=== PATIENT | male | born 1990 | race Caucasian/White ===

== ENCOUNTER 2017-09-10 16:42 | Emergency (ER) | payer SELFPAY ==
[2017-09-10 16:43] VITALS: BP 109/60; PULSE 110; RESP 16; TEMP 37.7; O2SAT 99; BMI 22.5
--- NOTE | 2017-09-10 17:09 | ED.DEP ---
ED Disposition - Plan for ED Patient: Chief Complaint: Abscess Instructions: ED Infec Skin Cellulitis Prescriptions: Cephalexin [Keflex] 500 mg PO Q6 #40 capsule Smz/Tmp Ds [Bactrim Ds] 1 tablet PO BID #14 tablet Referrals: Care Physician,No Primary [Primary Care Provider] - Danya Quintanilla DO [STAFF PHYSICIAN] -
--- NOTE | 2017-09-10 17:15 | ED.VISSUMM ---
- ER Visit Summary Date of Service: 09/10/17 Chief Complaint: Left knee redness History of Present Illness: The patient is a 26 M presenting with redness to the left knee. He states this started yesterday. Patient does not recall any injury or bite to the area. He has had no fever. He states he used a warm bottle home remedy and had minimal drainage. He states he did not puncture the area with a needle. Denies other complaints. Physical Examination: Vitals are stable. Temperature 99.9. Alert no acute distress. HEENT exam is unremarkable. Neck is supple. Lungs are clear and equal bilaterally. Heart is regular rate and rhythm. Extremities suprapatellar erythema and small area of induration without fluctuance. Active full range of motion of knee without tenderness. NVID. Skin is warm and dry. No focal neurologic deficit. Remainder of exam is unremarkable. Emergency Department Course and Treatment: Patient is given Bactrim, Keflex. Advised signs and symptoms for which to return to the emergency department. Advised to follow-up with primary care physician. Disposition: Discharge home Impression: Left knee cellulitis This note was generated with [employer] dictation software. It may contain incorrect words, spelling, and punctuation that were not noted in review of the chart prior to signing ED Disposition - Plan for ED Patient: Disposition: Home or Assisted Living Chief Complaint: Abscess Instructions: ED Infec Skin Cellulitis Prescriptions: Cephalexin [Keflex] 500 mg PO Q6 #40 capsule Smz/Tmp Ds [Bactrim Ds] 1 tablet PO BID #14 tablet Referrals: Danya Quintanilla DO [STAFF PHYSICIAN] - Care Physician,No Primary [Primary Care Provider] -
[2017-09-10] MEDS: Smz/Tmp Ds Tablet 1 TABLET PO (17:25)
[2017-09-10] MEDS: Cephalexin 250 MG Capsule 500 MG PO (17:25)
== END 2017-09-10 17:33 | disposition home or self-care (01) ==
PROVIDERS: Emergency Provider Emergency Medicine
DX: L03.116 Cellulitis of left lower limb (principal); Z72.0 Tobacco use
CPT/HCPCS: 99283

== ENCOUNTER 2018-07-08 23:20 | Emergency (ER) | payer SELFPAY ==
[2018-07-08 23:21] VITALS: BP 140/77; PULSE 95; RESP 18; TEMP 36.4; O2SAT 99; BMI 21.9
--- NOTE | 2018-07-08 23:42 | ED.VISSUMM ---
- ER Visit Summary Date of Service: 07/08/18 Chief Complaint: Back muscle spasm History of Present Illness: The patient is a 27 M smoking alcohol medical or significant past surgical history. 4 PM he was washing dishes and mopping any for muscle spasm in his right mid back to the right side of his spine and around his scapula but lower. He denies any fall injury or trauma. States he had pain like this before. Denies any chest pain or any shortness of breath. No abdominal pain. States it comes in spasms. At times is worse. Is worse with movement or bending over. He denies any other symptoms. No weakness or numbness. Physical Examination: Young male no acute distress. Vital signs are stable and afebrile. Initial blood pressure 140/77. Also is 9 9% on room air no signs of hypoxia. He is tall about 648. HEENT exam unremarkable atraumatic. Neck nontender. Lungs there to auscultation bilaterally. Heart regular rhythm rate about 90 no murmur. Chest wall nontender. Abdomen soft nontender. Patient is moving all 4 extremities. Neurovascular intact. He has 5 out of [place] strength bilaterally. Equal symmetrical radial pulses bilaterally. Dorsi plantar flexion intact. Calves are nontender without edema. Back exam his spine is nontender. To the right of his spine and inferior to the scapula there is soft tissue tenderness consistent with muscle spasm. There is no redness or warmth. No signs of trauma. No bony deformities. No crepitance. Test Results: Patient did not want any testing done. He was offered but deferred a chest x-ray. Emergency Department Course and Treatment: Historically clinically this is consistent with a muscle spasm. He has reproducible pain. It is worse with movement twisting or bending. Patient was offered but deferred a chest x-ray. Treated with ibuprofen p.o. and Valium p.o. Treatment Plan: Valium 5 to 10 mg as needed for muscle spasms 10 no refill. Motrin as needed. Hot shower warm bath. Massage. Return if feeling worse or other symptoms develop. Disposition: Discharge Impression: Back muscle spasm This note was generated with [employer] dictation software. It may contain incorrect words, spelling, and punctuation that were not noted in review of the chart prior to signing ED Disposition - Plan for ED Patient: Referrals: Care Physician,No Primary [Primary Care Provider] -
[2018-07-08] MEDS: Ibuprofen 600 MG Tablet PO (23:45)
[2018-07-08] MEDS: diazePAM 2 MG Tablet 10 MG PO (23:45)
--- NOTE | 2018-07-08 23:45 | ED.DCSUM_ITS ---
- ER Visit Summary Date of Service: 07/08/18 Chief Complaint: Back muscle spasm History of Present Illness: The patient is a 27 M smoking alcohol medical or significant past surgical history. 4 PM he was washing dishes and mopping any for muscle spasm in his right mid back to the right side of his spine and around his scapula but lower. He denies any fall injury or trauma. States he had pain like this before. Denies any chest pain or any shortness of breath. No abdominal pain. States it comes in spasms. At times is worse. Is worse with movement or bending over. He denies any other symptoms. No weakness or numbness. Physical Examination: Young male no acute distress. Vital signs are stable and afebrile. Initial blood pressure 140/77. Also is 9 9% on room air no signs of hypoxia. He is tall about 648. HEENT exam unremarkable atraumatic. Neck nontender. Lungs there to auscultation bilaterally. Heart regular rhythm rate about 90 no murmur. Chest wall nontender. Abdomen soft nontender. Patient is moving all 4 extremities. Neurovascular intact. He has 5 out of 5 diamond die polisher strength bilaterally. Equal symmetrical radial pulses bilaterally. Dorsi plantar flexion intact. Calves are nontender without edema. Back exam his spine is nontender. To the right of his spine and inferior to the scapula there is soft tissue tenderness consistent with muscle spasm. There is no redness or warmth. No signs of trauma. No bony deformities. No crepitance. Test Results: Patient did not want any testing done. He was offered but deferred a chest x-ray. Emergency Department Course and Treatment: Historically clinically this is consistent with a muscle spasm. He has reproducible pain. It is worse with movement twisting or bending. Patient was offered but deferred a chest x-ray. Treated with ibuprofen p.o. and Valium p.o. Treatment Plan: Valium 5 to 10 mg as needed for muscle spasms 10 no refill. Motrin as needed. Hot shower warm bath. Massage. Return if feeling worse or other symptoms develop. Disposition: Discharge Impression: Back muscle spasm This note was generated with [employer] dictation software. It may contain incorrect words, spelling, and punctuation that were not noted in review of the chart prior to signing ED Disposition - Plan for ED Patient: Referrals: Care Physician,No Primary [Primary Care Provider] -
--- NOTE | 2018-07-08 23:45 | ED.DEP ---
ED Disposition - Plan for ED Patient: Disposition: Home or Assisted Living Instructions: ED Spasm Back No Trauma Prescriptions: Diazepam [Valium] 5 mg PO Q8H PRN PRN #10 tab PRN Reason: Muscle Spasm Referrals: Sung Mcdermott MD [STAFF PHYSICIAN] - 3-5 Days if not improving Additional Instructions: Hot shower and warm bath to relax the muscle. Massage to the area. Motrin for pain and inflammation. Valium as a muscle relaxant. 5 to 10 mg as needed for muscle spasm. Do not drink alcohol or drive while using the Valium. Return if feeling worse or symptoms change.
[2018-07-08 23:50] VITALS: BP 142/84; PULSE 88; RESP 16; O2SAT 97
== END 2018-07-08 23:54 | disposition home or self-care (01) ==
PROVIDERS: Emergency Provider Emergency Medicine
DX: M62.830 Muscle spasm of back (principal); Z72.0 Tobacco use
CPT/HCPCS: 99283

== ENCOUNTER 2018-12-31 21:45 | Emergency (ER) | payer SELFPAY ==
[2018-12-31 21:46] VITALS: BP 131/70; PULSE 101; RESP 18; TEMP 36.5; O2SAT 98; BMI 21.7
--- NOTE | 2018-12-31 22:11 | ED.VIS.DENTA ---
History of Present Illness Chief Complaint: Dental Narrative: Patient presenting secondary to dental pain. Patient reports that over the course of about the last week and a half he has been dealing with generalized dental pain, mainly focused at his right maxillary lateral incisor and his left maxillary first molar. He reports that he thinks that potentially he has a dental abscess. Patient states that he had some leftover antibiotics and Tylenol 3's that he took with minimal relief. He reports that he is going to try and get an appointment with the dentist tomorrow. Pain is moderate, worse with chewing and palpation. He denies any constitutional symptoms such as fever or any difficulty swallowing. Past Medical History - Allergies and Home Meds Allergies/Adverse Reactions: Allergies No Known Allergies Allergy (Verified 12/31/18 21:46) Primary Care Physician: Care Physician,No Primary [Primary Care Provider] - Past Medical History: None Smoking Status: Current every day smoker Review of Systems All systems negative except as indicated General: Denies: Chills, Fever, Sweats Eyes: Denies: Visual changes - bilaterally, Diplopia ENT: Reports: - - Dental pain Cardiovascular: Denies: Chest pain, Palpitations Respiratory: Denies: Dyspnea, Cough, Dyspnea on exertion Gastrointestinal: Denies: Abdominal pain, Nausea, Vomiting, Diarrhea, Melena, Hematochezia Genitourinary: Denies: Dysuria, Hematuria, Frequency Musculoskeletal: Denies: Back pain, Extremity Pain Skin: Denies: Rash, Wounds Neurological: Denies: Headache, Weakness, Numbness Psych: Denies: Depression Endocrine: Denies: Polyuria Hematologic: Denies: Easy bruising, Easy bleeding Allergy: Denies: Swelling of the mouth Physical Exam Vital Signs/Narrative: Vital Signs Temp Pulse Resp BP Pulse Ox 12/31/18 21:46 97.7 F L 101 H 18 131/70 H 98 Inital Vital Signs reviewed: Yes General: Well nourished, Well developed Head: Normocephalic, Atraumatic ENT: Moist mucous membranes, No nasal trauma Mouth/Throat: Widespread dental decay, - - Halitosis. No evidence of trismus. Soft sublingual space. No evidence of focal abscess on palpation or evaluation of the patient's gumline. Negative for: Tenderness on tooth percussion, Trismus Neck: Supple, No lymphadenopathy, Nontender, No JVD Cardiovascular: Regular rate, Regular rhythm Respiratory: No distress Skin: Normal color Neurological: Alert, Oriented x3 Diagnostic/Tx/Re-eval - Medical Decision Making Patient presented secondary to dental pain. Physical exam demonstrated significant widespread dental decay but no obvious abscess. Patient will be started on penicillin and Naprosyn. He will be given a list of dental clinics. ED Disposition - Plan for ED Patient: Disposition: Home or Assisted Living Diagnosis: Pain, dental Instructions: Dental Pain Prescriptions: Naproxen [Naprosyn] 500 mg PO BID PRN #20 tab Prescription Printed Penicillin V Potassium 500 mg PO 4X/DAY #40 tab Prescription Printed Additional Instructions: Followup with a dentist LETICIA
[2018-12-31] MEDS: Naproxen 500 MG Tablet PO (22:16)
[2018-12-31] MEDS: Penicillin Vk 250 MG Tablet 500 MG PO (22:16)
== END 2018-12-31 22:24 | disposition home or self-care (01) ==
LOC: ED 22:24
PROVIDERS: Emergency Provider Emergency Medicine
DX: K08.89 Other specified disorders of teeth and supporting structures (principal); F17.200 Nicotine dependence, unspecified, uncomplicated; K02.9 Dental caries, unspecified
CPT/HCPCS: 99283

== ENCOUNTER 2019-01-16 09:20 | Emergency (ER) | payer MEDICAID, SELFPAY ==
[2019-01-16 09:21] VITALS: BP 119/69; PULSE 88; RESP 18; TEMP 36.6; O2SAT 99; BMI 21.9
[2019-01-16 09:24] VITALS: TEMP 36.6
--- NOTE | 2019-01-16 09:38 | ED.DCSUM_ITS ---
History of Present Illness Chief Complaint: Dental Informant: Patient Onset: Month(s) Current Severity: Mild Associated Symptoms: Jaw Swelling Narrative: The patient reports history of chronic dental pain dental infection, he currently has some mild swelling to the right lower jawline related to multiple carious teeth at that level, he was seen in the emergency department for to dental services, he has been on penicillin, he followed up today with [facility] he was changed to clindamycin, he was not given any pain management, he was told he would require $160 per tooth extracted minimal for he does not have those resources and he came to the emergency department for pain management he indicates he does not have a primary care provider he has had no fever no cough no difficulty swallowing or breathing no other complaints, He understands he likely needs a full mouth extraction Past Medical History - Allergies and Home Meds Allergies/Adverse Reactions: Allergies No Known Allergies Allergy (Verified 01/16/19 09:23) Primary Care Physician: Care Physician,No Primary [Primary Care Provider] - Past Medical History: - - He declines any history Smoking Status: Current every day smoker Review of Systems General: Reports: - - Complaint is dental pain right lower. Denies: Chills, Fever, Sweats Eyes: Denies: Visual changes - bilaterally, Diplopia ENT: Denies: Rhinorrhea, Sore throat Cardiovascular: Denies: Chest pain, Palpitations Respiratory: Denies: Dyspnea, Cough, Dyspnea on exertion Gastrointestinal: Denies: Abdominal pain, Nausea, Vomiting, Diarrhea, Melena, Hematochezia Genitourinary: Denies: Dysuria, Hematuria, Frequency Musculoskeletal: Denies: Back pain, Extremity Pain Skin: Denies: Rash, Wounds Neurological: Denies: Headache, Weakness, Numbness Physical Exam Vital Signs/Narrative: Vital Signs Temp Pulse Resp BP Pulse Ox 01/16/19 09:24 97.9 F 01/16/19 09:21 98 F 88 18 119/69 99 General: Well nourished, Well developed Head: Normocephalic, Atraumatic ENT: Moist mucous membranes, No rhinorrhea, TM's clear Mouth/Throat: Normal inspection lips/gums, Normal oral mucosa, Focal gum swelling, Widespread dental decay, - - He has extensive widespread dental decay of all teeth, he has some swelling over the right lower incisor area his mouth opening is normal his speech is normal floor the mouth normal tongue movement normal no stridor or drooling or signs of deep space infection Neck: Supple, No lymphadenopathy, Nontender, No JVD Cardiovascular: Regular rate, Regular rhythm, No murmurs Respiratory: No distress, CTA bilaterally, Chest nontender Abdomen: Soft, Nontender, Nondistended, Normal bowel sounds Back: Nontender, Normal Inspection Extremities: Nontender, No edema Skin: Normal color, No rash Neurological: Alert, Oriented x3, Cranial nerves II-XII grossly intact, Normal Strength, Normal Sensation Psychological: Normal affect Diagnostic/Tx/Re-eval - Medical Decision Making Given all the above the patient has antibiotics, he will be started on Naprosyn, I explained to him that the emergency department cannot provide further ongoing dental care and he does need to have these teeth extracted and likely requires a full mouth extraction he is aware he will take the antibiotics he will follow-up with his dentist for further management he was also given the dental referral sheet here for local options, and he was also recommended to call the [facility] dental [facility] in the [facility] for options regarding his care He refused IM Toradol Home stable Final impression dental infection with widespread dental decay ED Disposition - Plan for ED Patient: Diagnosis: Dental infection Instructions: Dental Cavity, Dental Pain Prescriptions: Naproxen [Naprosyn] 500 mg PO BID PRN #20 tab Prescription Printed Referrals: Care Physician,No Primary [Primary Care Provider] -
== END 2019-01-16 10:08 | disposition home or self-care (01) ==
PROVIDERS: Emergency Provider Emergency Medicine
DX: K04.7 Periapical abscess without sinus (principal); F17.200 Nicotine dependence, unspecified, uncomplicated
CPT/HCPCS: 99282

== ENCOUNTER 2019-09-22 22:12 | Emergency (ER) | payer MEDICAID, SELFPAY ==
[2019-09-22 22:13] VITALS: BP 150/76; PULSE 87; RESP 15; TEMP 36.7; O2SAT 99; BMI 21.9
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
[2019-09-22] MEDS: HYDROcodone Bitartrate/Apap 5/325 Tablet PO (22:40)
[2019-09-22 23:10] VITALS: RESP 15
== END 2019-09-22 23:10 | disposition home or self-care (01) ==
LOC: ED 22:47
PROVIDERS: Emergency Provider Emergency Medicine
DX: S83.91XA Sprain of unspecified site of right knee, initial encounter (principal); M25.469 Effusion, unspecified knee; F17.200 Nicotine dependence, unspecified, uncomplicated; V87.8XXA Person injured in other specified noncollision transport accidents involving motor vehicle (traffic), initial encounter; Y93.89 Activity, other specified; Y92.89 Other specified places as the place of occurrence of the external cause; Y99.9 Unspecified external cause status
CPT/HCPCS: 73564; 99284

== ENCOUNTER 2020-05-20 00:23 | Emergency (ER) | payer MEDICAID, SELFPAY ==
[2020-05-20 00:25] VITALS: BP 120/84; PULSE 105; RESP 16; TEMP 36.8; O2SAT 97; BMI 21.9
--- NOTE | 2020-05-20 01:03 | ED.VIS.GEN ---
History of Present Illness Chief Complaint: Dental Narrative: This patient is a 29-year-old male who presents with dental pain. He has a history of recurrent dental infections. Yesterday began to have pain and swelling at the right jaw. No fevers. No vomiting. He is not diabetic. No difficulty swallowing or speaking. Past Medical History - Allergies and Home Meds Allergies/Adverse Reactions: Allergies No Known Allergies Allergy (Verified 05/20/20 00:24) Primary Care Physician: Care Physician,No Primary [Primary Care Provider] - Past Medical History: - - Recurrent dental abscesses Surgical History: no surgical history Smoking Status: Current every day smoker Review of Systems All systems negative except as indicated General: Denies: Fever Eyes: Denies: Visual changes - bilaterally ENT: Reports: - - Dental pain and facial swelling Cardiovascular: Denies: Chest pain Respiratory: Denies: Dyspnea Gastrointestinal: Denies: Nausea, Vomiting Musculoskeletal: Denies: Myalgias, Arthralgias Skin: Denies: Rash Neurological: Denies: Headache Hematologic: Denies: Easy bruising Physical Exam Vital Signs/Narrative: Vital Signs Temp Pulse Resp BP Pulse Ox 05/20/20 00:25 98.2 F 105 H 16 120/84 H 97 Inital Vital Signs reviewed: Yes General: Well nourished Head: Normocephalic Eyes: EOMI ENT: Moist mucous membranes, - - Patient has widespread severe dental decay. He has dental tenderness on percussion and palpation of the right mandibular first premolar. He does have some jaw swelling and tenderness he does not have an abscess amenable to incision and drainage at this time Neck: Supple Cardiovascular: Regular rate Respiratory: No distress Skin: Normal color Neurological: Alert Psychological: Normal affect Diagnostic/Tx/Re-eval - Medical Decision Making Patient does have evidence of a dental abscess. He does not have a collection amenable to incision and drainage at this time. He was started on penicillin and provided with a prescription for the same as well as a list of dental clinics and was discharged home. ED Disposition - Plan for ED Patient: Disposition: Home or Assisted Living Diagnosis: Dental abscess Instructions: Dental Abscess Prescriptions: Penicillin V Potassium 500 mg PO 4X/DAY #40 tablet Prescription Printed Referrals: Care Physician,No Primary [Primary Care Provider] -
[2020-05-20] MEDS: Penicillin Vk 250 MG Tablet 500 MG PO (01:23)
[2020-05-20 01:27] VITALS: PULSE 99; RESP 20
== END 2020-05-20 01:27 | disposition home or self-care (01) ==
PROVIDERS: Emergency Provider Emergency Medicine
DX: K04.7 Periapical abscess without sinus (principal); K02.9 Dental caries, unspecified; F17.200 Nicotine dependence, unspecified, uncomplicated
CPT/HCPCS: 99282